=== PATIENT | male | born 1970 | race Caucasian/White ===

== ENCOUNTER 2017-07-10 20:53 | Emergency (ER) | payer BC, OTHER, SELFPAY ==
[2017-07-10] MEDS ORDERED: Lorazepam 2 MG/ML VIAL ONE (21:11)
[2017-07-10] MEDS ORDERED: Ketorolac Tromethamine 30 MG/ML VIAL ONE (21:12)
--- NOTE | 2017-07-10 21:59 | CT ---
CT OF THE CERVICAL SPINE WITHOUT CONTRAST 07/10/17 INDICATION: History of trauma and neck pain. COMPARISON: None. FINDINGS: No acute fracture or subluxation is evident. There is mild multilevel spondylosis of the cervical spi ne most pronounced at C5-6 and C6-7. Spinal alignment is within normal limits. Lung apices are clear. Prevertebral soft tissues appear within normal limits. IMPRESSION: No acute osseous abnormality. POS: [facility]
--- NOTE | 2017-07-10 22:05 | CT ---
NONCONTRAST CT OF THE BRAIN 07/10/17 INDICATION: History of head trauma. COMPARISON: None. FINDINGS: No acute infarct, hemorrhage or hydrocephalus present. Septum pellucidum and third ventricle are midl ine. Skull and intracranial soft tissues are within normal limits. IMPRESSION: No acute intracranial abnormality. POS: [facility]
--- NOTE | 2017-07-10 22:07 | RAD ---
TWO VIEWS OF THE LUMBAR SPINE 07/10/17 INDICATION: Trauma, low back pain. COMPARISON: None. FINDINGS: no acute fracture or subluxation is evident. There is mild multilevel disc degenerative disease of th e lumbar spine. Spinal alignment is preserved. SI joints are normal appearing. Bowel gas pattern is w ithin normal limits. IMPRESSION: No acute osseous abnormality. Mild spondylosis lumbar spine. POS: [facility]
== END 2017-07-11 00:55 | disposition home or self-care (01) ==
LOC: MADERS 20:53
DX: T14.8XXA Other injury of unspecified body region, initial encounter (principal); I10 Essential (primary) hypertension; V63.5XXA Driver of heavy transport vehicle injured in collision with car, pick-up truck or van in traffic accident, initial encounter
CPT/HCPCS: 70450; 72100; 72125; 96374; 96375; G0390; J1885; J2060